=== PATIENT | male | born 1970 | race African-American/Black ===

== ENCOUNTER 2018-09-14 05:49 | Emergency (ER) | payer OTHER ==
[~2018-09-14] VITALS: Ht 182.9 cm; Wt 90.7 kg
--- NOTE | 2018-09-14 06:00 | NUR ---
PT BROUGHT IN FROM RETIREMENT, FOR HIGH BLOOD PRESSURE. PT STATES THAT HE HX OF HYPERTENSION AND HAS NOT BEEN TAKING HIS MEDICATIONS. PT [id number]. PT PUT ON THE MONITOR AND PULSE OX. RESPIRATIONS EVEN AND UNLABORED. [employer] AT BEDSIDE. PENDING EVAL FROM ER .
[2018-09-14] MEDS ORDERED: LISINOPRIL (20MG) 20 MG TABLET PO SCH (06:30)
[2018-09-14] MEDS ORDERED: HYDROCHLOROTHIAZIDE 25 MG TABLET PO ONE (06:30)
[2018-09-14] MEDS ORDERED: HYDROCHLOROTHIAZIDE 25 MG TABLET ONE (06:33)
[2018-09-14] MEDS ORDERED: LISINOPRIL (20MG) 20 MG TABLET ONE (06:43)
--- NOTE | 2018-09-14 06:50 | NUR ---
LISINOPRIL DUPLICATE ORDER, MED TAKEN FROM FLOOR PYXIS.
--- NOTE | 2018-09-14 07:28 | NUR ---
Patient discharged to custody. Written and verbal after care instructions given. Patient verbalizes understanding of instruction. Pt ambulatory with steady gait.
[2018-09-14 07:30] VITALS: BP 176/99
== END 2018-09-14 07:30 ==
LOC: ER 05:56
DX: I10 Essential (primary) hypertension (principal); F12.90 Cannabis use, unspecified, uncomplicated; Z59.0 Homelessness; Z98.890 Other specified postprocedural states
CPT/HCPCS: 99283; A4606